=== PATIENT | female | born 1980 | race Caucasian/White ===

== ENCOUNTER 2020-06-01 12:10 | Outpatient (CLI) | payer OTHER ==
--- NOTE | 2020-06-01 12:59 | RAD ---
EXAM: XR Sacroiliac Joints >=3 View DATE: 06/01/2020 12:47 PM INDICATION: History of sacroiliitis COMPARISON: None. FINDING: No active periarticular erosive change is seen involving the SI joints. The subchondral bon e plates appear intact. There is subchondral sclerosis on both margins of the anterior SI joint consistent with changes of SI joint degenerative change. No acute fractures evident. Visualized bowel gas pattern is unobstructed. No suspicious calcification is evident. IMPRESSION:Degenerative change of both SI joints. No active periarticular erosive change demonstrated .
== END 2020-06-01 12:11 | disposition home or self-care (01) ==
LOC: BICRAD 12:10
PROVIDERS: ATTEND Internal Medicine Rheumatology
DX: M46.1 Sacroiliitis, not elsewhere classified (principal); M47.818 Spondylosis without myelopathy or radiculopathy, sacral and sacrococcygeal region
CPT/HCPCS: 72202

== ENCOUNTER 2023-03-06 11:34 | Outpatient (CLI) | payer BC | END 2023-03-06 11:35 | disposition home or self-care (01) | LOC: SCSRAD 11:34 | PROVIDERS: ATTEND Internal Medicine Rheumatology | DX: M48.00 Spinal stenosis, site unspecified (principal); M47.812 Spondylosis without myelopathy or radiculopathy, cervical region; M47.818 Spondylosis without myelopathy or radiculopathy, sacral and sacrococcygeal region | CPT/HCPCS: 72040; 72202 ==